=== PATIENT | female | born 1955 | race Hispanic/Latino ===

== ENCOUNTER → 2019-10-13 | Outpatient (CLI) | payer OTHER, MEDICARE | END | disposition home or self-care (01) | LOC: RAH 07:50 | PROVIDERS: ATTEND Orthopaedic Surgery | DX: M25.461 Effusion, right knee (principal); M17.11 Unilateral primary osteoarthritis, right knee | CPT/HCPCS: 73721 ==

== ENCOUNTER → 2021-04-02 | Outpatient (CLI) | payer OTHER, MEDICARE | END | disposition home or self-care (01) | LOC: RAH 11:35 | PROVIDERS: ATTEND Nurse Practitioner | DX: M75.111 Incomplete rotator cuff tear or rupture of right shoulder, not specified as traumatic (principal); M19.011 Primary osteoarthritis, right shoulder | CPT/HCPCS: 73221 ==

== ENCOUNTER 2021-08-14 06:20 | Day surgery (SDC) | payer OTHER, MEDICARE ==
[2021-08-12 10:30] LABS: BASOPHILS % (AUTO) 0.4 % (0.0-5.0); LYMPHOCYTES % (AUTO) 28.5 % (21.0-51.0); MEAN CORPUSCULAR HEMOGLOBIN 28.5 pg (27.0-33.0); MEAN CORPUSCULAR HGB CONC 32.8 g/dL (32.0-36.0); MEAN CORPUSCULAR VOLUME 87.1 fL (79-99); MONOCYTES % (AUTO) 6.3 % (3.0-13.0); NEUTROPHILS % (AUTO) 62.6 % (40.0-77.0); PLATELET COUNT (AUTO) 234 K/uL (130-400); RED BLOOD CELL COUNT(AUTO) 4.59 MIL/uL (4.00-5.50); RED CELL DISTRIBUTION WIDTH 13.6 % (11.0-15.5); WHITE BLOOD COUNT (AUTO) 5.4 K/uL (4.8-10.8)
[2021-08-12 10:43] LABS: CREATININE 0.7 mg/dL (0.5-1.5); POTASSIUM 4.3 mmol/L (3.5-5.1)
[2021-08-13 08:37] VITALS: BP 128/78
[~2021-08-14] VITALS: Ht 160 cm; Wt 78.3 kg
[2021-08-14] VITALS (15 sets, daily range): BP systolic 117–147; BP diastolic 67–99
[~2021-08-14 06:20] MED LIST: BACL5TAB PO; CALC-1198 PO; FAMO20TA8 PO; LEVO75TA10 PO; VITAMIN D2 PO
[2021-08-14] MEDS ORDERED: LACTATED RINGERS 1000ML 1,000 ML IV ONE (07:41)
[2021-08-14] MEDS ORDERED: EPINEPHRINE 1 MG/ML 30ML VIAL IJ ONE (08:03)
[2021-08-14] MEDS ORDERED: LIDOCAINE PF 100MG/5ML (2%) SYRINGE 5ML ONE (08:13)
[2021-08-14] MEDS ORDERED: DEXAMETHASONE SOD PHOSPHATE 10MG/ML 1ML VIAL ONE (08:13)
[2021-08-14] MEDS ORDERED: GLYCOPYRROLATE 1 MG/5 ML SYRINGE ONE (08:13)
[2021-08-14] MEDS ORDERED: SUCCINYLCHOLINE CHLORIDE 20 MG/ML 10 ML VIAL ONE (08:13)
[2021-08-14] MEDS ORDERED: NEOSTIGMINE 5MG/5ML SYR IV ONE (08:14)
[2021-08-14] MEDS ORDERED: PROPOFOL 10 MG/ML 20ML VIAL IV ONE (08:14)
[2021-08-14] MEDS ORDERED: ROCURONIUM 10MG/1ML SYR 10 MG/ML ML ONE (08:14)
[2021-08-14] MEDS ORDERED: MIDAZOLAM HCL 1 MG/ML 2ML VIAL ONE (08:14)
[2021-08-14] MEDS ORDERED: ONDANSETRON 4MG INJ ONE ×2 (08:14→11:55)
[2021-08-14] MEDS ORDERED: FENTANYL CITRATE PF 50 MCG/1 ML 2ML VIAL ONE (08:15)
[2021-08-14] MEDS: CEFAZOLIN SODIUM 1 GM VIAL ONE ×2 (08:21→08:55)
[2021-08-14] MEDS ORDERED: ROPIVACAINE 0.5% 5MG/ML 30ML IJ ONE (08:26)
[2021-08-14] MEDS ORDERED: KETO10 PO (11:25)
[2021-08-14] MEDS ORDERED: CEPH500B PO (11:25)
[2021-08-14] MEDS ORDERED: HYDR-4060 PO (11:25)
[2021-08-14] MEDS ORDERED: KETOROLAC 15MG/ML VIAL (15MG/ML) ONE (12:21)
== END 2021-08-14 14:14 | disposition home or self-care (01) ==
LOC: DAH 06:20
PROVIDERS: ATTEND Orthopaedic Surgery
DX: S46.011A Strain of muscle(s) and tendon(s) of the rotator cuff of right shoulder, initial encounter (principal); S46.111A Strain of muscle, fascia and tendon of long head of biceps, right arm, initial encounter; G89.29 Other chronic pain; M25.811 Other specified joint disorders, right shoulder; M19.90 Unspecified osteoarthritis, unspecified site; Z90.49 Acquired absence of other specified parts of digestive tract; Z98.890 Other specified postprocedural states; Z82.49 Family history of ischemic heart disease and other diseases of the circulatory system; Z83.3 Family history of diabetes mellitus; Z79.01 Long term (current) use of anticoagulants; Z79.899 Other long term (current) drug therapy; W19.XXXA Unspecified fall, initial encounter; Y93.89 Activity, other specified; Y92.89 Other specified places as the place of occurrence of the external cause
CPT/HCPCS: 29826; 29827; 29828; 36415; 64415; 76942; 80048; 85025; 87635; 93005; A4215; A4221; A4222; A4223; A4565; A4649 ×3; A4663; A6204; C1713 ×3; C9803; G0168; J0171; J0330; J0690; J1100; J1885; J2001; J2250; J2405 ×2; J2704; J2710; J2795; J3010; J3490; J7030; J7120

== ENCOUNTER → 2021-12-11 | Outpatient (CLI) | payer OTHER, MEDICARE ==
[~2021-12-11] MED LIST changes: +CEPH500B PO; +HYDR-4060 PO; +KETO10 PO
== END | disposition home or self-care (01) ==
LOC: RAH 10:58
PROVIDERS: ATTEND Orthopaedic Surgery
DX: M75.01 Adhesive capsulitis of right shoulder (principal)
CPT/HCPCS: 73221

== ENCOUNTER 2022-07-10 09:21 | Emergency (ER) | payer OTHER, MEDICARE ==
[~2022-07-10] VITALS: Ht 160 cm; Wt 72.6 kg
[2022-07-10] MEDS ORDERED: DIPH,PERTUSS(ACELL),TET VAC/PF 0.5 ML VIAL IM ONE (09:30)
[2022-07-10] MEDS ORDERED: OXYCODONE/ACETAMIN 5/325MG TAB PO ONE (09:30)
[2022-07-10] MEDS ORDERED: AMOX/CLAV 875/125MG TAB PO ONE (09:30)
[2022-07-10] MEDS ORDERED: OXYC-38 PO (09:35)
[2022-07-10] MEDS ORDERED: AMOX-427 PO (09:35)
[2022-07-10 10:28] VITALS: BP 131/82
[2022-07-10] MEDS ORDERED: LIDOCAINE HCL 1% 20 ML VIAL SCH (10:30)
== END 2022-07-10 10:59 | disposition home or self-care (01) ==
LOC: EDH 09:21
DX: S61.211A Laceration without foreign body of left index finger without damage to nail, initial encounter (principal); S61.451A Open bite of right hand, initial encounter; S61.452A Open bite of left hand, initial encounter; Z90.49 Acquired absence of other specified parts of digestive tract; Z79.1 Long term (current) use of non-steroidal anti-inflammatories (NSAID); Z79.2 Long term (current) use of antibiotics; Z79.899 Other long term (current) drug therapy; W55.01XA Bitten by cat, initial encounter; Y93.89 Activity, other specified; Y92.89 Other specified places as the place of occurrence of the external cause; Y99.8 Other external cause status
CPT/HCPCS: 12001; 73120; 90471; 90715

== ENCOUNTER → 2022-07-30 | Outpatient (CLI) | payer OTHER, MEDICARE ==
[~2022-07-30] MED LIST changes: -BACL5TAB PO; -CALC-1198 PO; -CEPH500B PO; -FAMO20TA8 PO; -HYDR-4060 PO; -KETO10 PO; +LIDOCAINE HCL 4% LTA SOL 4 ML VIAL TP ONE; -VITAMIN D2 PO
== END | disposition home or self-care (01) ==
LOC: WHH 10:13
PROVIDERS: ATTEND Family Medicine
DX: S61.251A Open bite of left index finger without damage to nail, initial encounter (principal); S61.401A Unspecified open wound of right hand, initial encounter; J45.909 Unspecified asthma, uncomplicated; E03.9 Hypothyroidism, unspecified; I10 Essential (primary) hypertension; M19.90 Unspecified osteoarthritis, unspecified site; K21.9 Gastro-esophageal reflux disease without esophagitis; F41.9 Anxiety disorder, unspecified; F32.A Depression, unspecified; Z87.891 Personal history of nicotine dependence; W55.01XA Bitten by cat, initial encounter; X58.XXXA Exposure to other specified factors, initial encounter; Y93.89 Activity, other specified; Y92.89 Other specified places as the place of occurrence of the external cause; Y99.8 Other external cause status
CPT/HCPCS: G0463; A6248; A4450

== ENCOUNTER → 2022-08-06 | Outpatient (CLI) | payer OTHER, MEDICARE ==
[~2022-08-06] MED LIST changes: -LIDOCAINE HCL 4% LTA SOL 4 ML VIAL TP ONE
== END | disposition home or self-care (01) ==
LOC: WHH 08:30
PROVIDERS: ATTEND Nurse Practitioner Family
DX: S61.251D Open bite of left index finger without damage to nail, subsequent encounter (principal); I10 Essential (primary) hypertension; J45.909 Unspecified asthma, uncomplicated; E03.9 Hypothyroidism, unspecified; M19.90 Unspecified osteoarthritis, unspecified site; K21.9 Gastro-esophageal reflux disease without esophagitis; F41.9 Anxiety disorder, unspecified; F32.A Depression, unspecified; Z90.49 Acquired absence of other specified parts of digestive tract; Z87.891 Personal history of nicotine dependence; Z79.899 Other long term (current) drug therapy; W55.01XD Bitten by cat, subsequent encounter
CPT/HCPCS: G0463

== ENCOUNTER → 2023-03-12 | Outpatient (CLI) | payer OTHER, MEDICARE | END | disposition home or self-care (01) | LOC: RAH 13:44 | PROVIDERS: ATTEND Family Medicine | DX: Z12.31 Encounter for screening mammogram for malignant neoplasm of breast (principal) | CPT/HCPCS: 77067 ==

== ENCOUNTER 2023-03-26 14:08 | Observation (INO) | payer OTHER, MEDICARE ==
[~2023-03-26] VITALS: Ht 160 cm; Wt 72.6 kg
[2023-03-26 15:24] LABS: BASOPHILS # (AUTO) 0.04 K/uL (0.00-0.20); BASOPHILS % (AUTO) 0.7 % (0.0-5.0); EOSINOPHILS # (AUTO) 0.13 K/uL (0.00-0.70); EOSINOPHILS % (AUTO) 2.1 % (0.0-8.0); HEMATOCRIT 40.8 % (36-48); IMMATURE GRANULOCYTE ABSOLUTE 0.01 K/uL (0-1); LYMPHOCYTES # (AUTO) 2.1 K/uL (1.0-4.8); LYMPHOCYTES % (AUTO) 33.7 % (21.0-51.0); MEAN CORPUSCULAR HEMOGLOBIN 28.3 pg (27.0-33.0); MEAN CORPUSCULAR HGB CONC 32.8 g/dL (32.0-36.0); MEAN CORPUSCULAR VOLUME 86.3 fL (79-99); MONOCYTES # (AUTO) 0.5 K/uL (0.1-1.0); MONOCYTES % (AUTO) 8.7 % (3.0-13.0); NEUTROPHILS # (AUTO) 3.3 K/uL (1.8-7.7); NEUTROPHILS % (AUTO) 54.6 % (40.0-77.0); PLATELET COUNT (AUTO) 251 K/uL (130-400); RED BLOOD CELL COUNT(AUTO) 4.73 MIL/uL (4.00-5.50); RED CELL DISTRIBUTION WIDTH 13.8 % (11.0-15.5); WHITE BLOOD COUNT (AUTO) 6.1 K/uL (4.8-10.8)
[2023-03-26 15:47] LABS: B-TYPE NATRIURETIC PEPTIDE 18 pg/mL (0-100)
[2023-03-26 15:52] LABS: CREATININE 0.8 mg/dL (0.5-1.5); POTASSIUM 4.1 mmol/L (3.5-5.1)
[2023-03-26 16:01] LABS: ALBUMIN 3.9 g/dL (3.5-5.0); BILIRUBIN,TOTAL 0.4 mg/dL (0.2-1.0); TOTAL PROTEIN, SERUM 7.7 g/dL (6.0-8.3)
[2023-03-26] MEDS ORDERED: IOHEXOL 350 MG/ML 100ML INFUS..BTL IV ONE (18:30)
[2023-03-26] MEDS ORDERED: LACTULOSE 20 GM/30 ML UDCUP PO PRN (18:30)
[2023-03-26] MEDS ORDERED: NITROGLYCERIN 0.4 MG SL TAB SL PRN ×2 (18:30)
[2023-03-26] MEDS ORDERED: ONDANSETRON 4MG INJ IV PRN (18:30)
[2023-03-26] MEDS ORDERED: ZOLPIDEM TARTRATE 5 MG TAB PO PRN (18:30)
[2023-03-26] MEDS ORDERED: MAG/ALUM/SIMETH 30 ML UDCUP PO PRN (18:30)
[2023-03-26] MEDS ORDERED: ACETAMINOPHEN 325 MG TAB PO PRN (18:30)
[2023-03-26 19:45] VITALS: PULSE 78; RESP 14; O2SAT 98
[2023-03-26] MEDS: FAMOTIDINE 20MG TAB PO SCH (21:23)
[2023-03-26] MEDS: ATORVASTATIN 40 MG TABLET PO SCH (21:23)
[2023-03-26] MEDS: ALBUTEROL 0.083% 2.5 MG/3 ML INH IH SCH (22:17)
[2023-03-26 22:18] VITALS: PULSE 77; RESP 14
[2023-03-27] VITALS (13 sets, daily range): BP systolic 108–143; BP diastolic 57–70; PULSE 74–87; RESP 12–19; O2SAT 95–97
[2023-03-27] MEDS: ALBUTEROL 0.083% 2.5 MG/3 ML INH IH SCH ×5 (02:38→23:20)
[2023-03-27] MEDS ORDERED: DULO20CA18 PO (03:45)
[2023-03-27] MEDS ORDERED: BACL10TA PO (03:45)
[2023-03-27 05:14] LABS: CHOLESTEROL 159 mg/dL (<200); HDL CHOLESTEROL 59 mg/dL (35-85); LDL DIRECT 77 mg/dL (0-99); TRIGLYCERIDES 240 mg/dL (30-200)
[2023-03-27] MEDS: ENOXAPARIN SODIUM 40 MG/0.4 ML SYRINGE SQ SCH (08:49)
[2023-03-27] MEDS: ASPIRIN 325MG TAB PO SCH (08:49)
[2023-03-27] MEDS: FAMOTIDINE 20MG TAB PO SCH ×2 (08:49→20:45)
[2023-03-27] MEDS ORDERED: ALBUTEROL 0.083% 2.5 MG/3 ML INH IH ONE (10:35)
[2023-03-27] MEDS: ATORVASTATIN 40 MG TABLET PO SCH (20:45)
[2023-03-28] VITALS (13 sets, daily range): BP systolic 109–133; BP diastolic 60–75; PULSE 66–91; RESP 16–20; O2SAT 95–97
[2023-03-28] MEDS: ALBUTEROL 0.083% 2.5 MG/3 ML INH IH SCH ×4 (06:27→23:31)
[2023-03-28] MEDS: LEVOTHYROXINE 75 MCG TABLET PO SCH (07:30)
[2023-03-28 08:13] LABS: BASOPHILS # (AUTO) 0.03 K/uL (0.00-0.20); BASOPHILS % (AUTO) 0.6 % (0.0-5.0); EOSINOPHILS # (AUTO) 0.17 K/uL (0.00-0.70); EOSINOPHILS % (AUTO) 3.5 % (0.0-8.0); HEMATOCRIT 39.1 % (36-48); IMMATURE GRANULOCYTE ABSOLUTE 0.02 K/uL (0-1); LYMPHOCYTES # (AUTO) 1.7 K/uL (1.0-4.8); LYMPHOCYTES % (AUTO) 34.7 % (21.0-51.0); MEAN CORPUSCULAR HEMOGLOBIN 28.8 pg (27.0-33.0); MEAN CORPUSCULAR VOLUME 87.3 fL (79-99); MONOCYTES # (AUTO) 0.5 K/uL (0.1-1.0); MONOCYTES % (AUTO) 9.4 % (3.0-13.0); NEUTROPHILS # (AUTO) 2.5 K/uL (1.8-7.7); NEUTROPHILS % (AUTO) 51.4 % (40.0-77.0); PLATELET COUNT (AUTO) 225 K/uL (130-400); RED BLOOD CELL COUNT(AUTO) 4.48 MIL/uL (4.00-5.50); RED CELL DISTRIBUTION WIDTH 13.9 % (11.0-15.5); WHITE BLOOD COUNT (AUTO) 4.9 K/uL (4.8-10.8)
[2023-03-28 08:30] LABS: CREATININE 0.7 mg/dL (0.5-1.5); POTASSIUM 3.7 mmol/L (3.5-5.1)
[2023-03-28] MEDS: FAMOTIDINE 20MG TAB PO SCH ×2 (09:00→20:11)
[2023-03-28] MEDS: ASPIRIN 325MG TAB PO SCH (09:00)
[2023-03-28] MEDS: ENOXAPARIN SODIUM 40 MG/0.4 ML SYRINGE SQ SCH (11:27)
[2023-03-28] MEDS ORDERED: REGADENOSON 0.4 MG/5 ML PF SYG IVP SCH (13:00)
[2023-03-28] MEDS: ATORVASTATIN 40 MG TABLET PO SCH (20:11)
[2023-03-28] MEDS ORDERED: GEMF600T89 PO (22:43)
[2023-03-29 03:00] VITALS: BP 130/70; PULSE 64; RESP 16
[2023-03-29] MEDS: ALBUTEROL 0.083% 2.5 MG/3 ML INH IH SCH (06:51)
[2023-03-29 06:56] VITALS: PULSE 77; RESP 18
[2023-03-29 08:00] VITALS: BP 130/57; PULSE 70; RESP 16
[2023-03-29] MEDS: ASPIRIN 325MG TAB PO SCH (08:16)
[2023-03-29] MEDS: LEVOTHYROXINE 75 MCG TABLET PO SCH (08:16)
[2023-03-29] MEDS: FAMOTIDINE 20MG TAB PO SCH (08:17)
== END 2023-03-29 08:45 | disposition home or self-care (01) ==
LOC: EDH 14:08 → EDHIP 18:07 → 4CH 03-27 02:56
PROVIDERS: ADMIT Internal Medicine; ATTEND Internal Medicine
DX: I20.0 Unstable angina (principal); J96.01 Acute respiratory failure with hypoxia; E78.1 Pure hyperglyceridemia; E66.9 Obesity, unspecified; J45.909 Unspecified asthma, uncomplicated; M19.90 Unspecified osteoarthritis, unspecified site; K21.9 Gastro-esophageal reflux disease without esophagitis; E89.0 Postprocedural hypothyroidism; Z90.49 Acquired absence of other specified parts of digestive tract; Z87.891 Personal history of nicotine dependence; Z68.28 Body mass index [BMI] 28.0-28.9, adult
CPT/HCPCS: 99285; 84484 ×4; 80053; 83880; 85025 ×2; 85378; 83605; 36415 ×3; 71046; 71270; 93005 ×3; 94640 ×11; 94664; 96372 ×2; 80061; 93017; 78452; 93306; 93356; 80048; G0378 ×56; Q9967; J1650 ×2; A9500 ×2; J2785; 96374